=== PATIENT | female | born 1980 | race American Indian/Alaskan Native ===

== ENCOUNTER 2019-12-11 08:18 | Outpatient (CLI) | payer BC ==
--- NOTE | 2019-12-11 10:00 | Cat Scan Report ---
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 TECHNIQUE: Axial CT images were obtained through the chest without contrast. Sagittal and coronal reformatted im ages. All CT scans at this location are performed using CT dose reduction for ALARA by means of autom ated exposure control. COMPARISON: Chest x-ray dated 04/24/2019 FINDINGS: HEART: No significant abnormality. THORACIC AORTA: No significant abnormality. MEDIASTINUM and JAKUB: No significant abnormality. No mediastinal adenopathy. LUNGS: A 1.9 x 1.2 cm subpleural mass is identified in the right posterior costophrenic angle. This l esion is well-circumscribed with no calcifications are intact or internal cystic change. The remainde r the lungs are clear. No underlying parenchymal lung disease is appreciated. PLEURA: No significant pleural effusion. No pneumothorax. SKELETAL SYSTEM: No significant abnormality. UPPER ABDOMEN: No significant abnormality. ADDITIONAL FINDINGS: None. IMPRESSION: 1.9 x 1.2 cm subpleural masslike lesion in the right posterior costophrenic angle. Overall, this has a benign appearance but the etiology of this lesion is unclear. Close interval follow-up is recommen ded to ensure stability. This lesion is not accessible for CT-guided biopsy due to its location. No thoracic adenopathy is detected. Signer Name: Dakotah Good Jr, MD Signed: 12/11/2019 9:55 AM Workstation Name: [id number]
== END 2019-12-11 08:19 | disposition home or self-care (01) ==
LOC: CT 08:18
PROVIDERS: ATTEND Otolaryngology
DX: I88.1 Chronic lymphadenitis, except mesenteric (principal)
CPT/HCPCS: 71250

== ENCOUNTER 2020-08-26 10:35 | Emergency (ER) | payer OTHER, BC ==
[2020-08-26] MEDS ORDERED: IBUPROFEN 600 MG TAB PO ONE (11:15)
--- NOTE | 2020-08-26 11:44 | XRay Report ---
RIGHT LITTLE FINGER 3 VIEWS INDICATION / CLINICAL INFORMATION: Right little finger pain after finger was closed in door earlier today. COMPARISON: None available. FINDINGS: BONES and JOINT(S): No acute fracture or subluxation. No significant arthritis. SOFT TISSUES: Mild generalized edema is seen along the little finger without an additional significan t abnormalities. ADDITIONAL FINDINGS: None. IMPRESSION: Mild right little finger edema without an acute fracture. Signer Name: Mane Barros MD Signed: 08/26/2020 11:40 AM Workstation Name: [email or web address]
--- NOTE | 2020-08-26 11:49 | Emergency Department Report ---
Upper Extremity - [facility] Chief Complaint: Extremity Injury, Upper Stated Complaint: RT PINKIE FINGER Time Seen by Provider: 08/26/20 11:10 Upper Extremity: Right Little Finger Occurred When: Today Mechanism: Other (caught in door) Severity: moderate Symptoms: Yes Pain with Movement, Yes Limited Range of Movement, Yes Swelling, Yes Bruising/Ecchymosis, No Deformity, No Numbness, No Weakness, No Laceration or Abrasion ED Review of Systems ROS: Stated complaint: RT PINKIE FINGER Other details as noted in HPI Comment: All other systems reviewed and negative Musculoskeletal: as per HPI ED Past Medical Hx - Past Medical History Hx Seizures: Yes - Surgical History Additional Surgical History: C section. Breast reduction - Social History Smoking Status: Never Smoker Substance Use Type: None - Medications Home Medications: Home Medications Medication Instructions Recorded Confirmed Last Taken Type Cyclobenzaprine [Flexeril] 10 mg PO TID PRN 5 Days #15 tablet 04/10/20 Unknown Rx Ibuprofen [Motrin 600 MG tab] 600 mg PO Q8H PRN 10 Days #30 08/26/20 Unknown Rx tablet Upper Extremity Exam - Exam General: Vital signs noted. No distress. Alert and acting appropriately. Shoulder Exam: Yes Normal Range of Motion in Shoulder, No Shoulder Tenderness, No Clavicle Tenderness, No Shoulder Deformity Arm Exam: No Arm/Humerus Tenderness, No Arm Deformity Elbow: Yes Normal Range of Motion in Elbow, No Elbow Tenderness Forearm: No Forearm Tenderness, No Forearm Deformity Wrist: Yes Normal ROM in Wrist, No Wrist Tenderness Hand: No Digit(s) Deformity (R little digit with mild swelling at DIP, mild ecchymosis ) ED Course Vital Signs 08/26/20 11:29 Respiratory 18 Rate ED Medical Decision Making - Medical Decision Making caught 5th digit in door, mild edema and bruising on exam cms intact xray = no fx splint placed, fu pcp - Differential Diagnosis fx, contusion, sprain Critical care attestation.: If time is entered above; I have spent that time in minutes in the direct care of this critically ill patient, excluding procedure time. ED Disposition Clinical Impression: Contusion of right little finger Qualifiers: Encounter type: initial encounter Damage to nail status: without damage Qualified Code(s): S60.051A - Contusion of right little finger without damage to nail, initial encounter Disposition: - TO HOME OR SELFCARE Is pt being admited?: No Condition: Good Instructions: Contusion in Adults (ED) Prescriptions: Ibuprofen [Motrin 600 MG tab] 600 mg PO Q8H PRN 10 Days #30 tablet PRN Reason: Pain Referrals: PRIMARY CARE, [Primary Care Provider] - 3-5 Days Time of Disposition: 12:18
[2020-08-26 13:25] VITALS: BP 137/85
== END 2020-08-26 12:24 | disposition home or self-care (01) ==
LOC: ED 10:35
DX: S60.051A Contusion of right little finger without damage to nail, initial encounter (principal); R56.9 Unspecified convulsions; Z98.890 Other specified postprocedural states; Z79.1 Long term (current) use of non-steroidal anti-inflammatories (NSAID); Z79.899 Other long term (current) drug therapy; X58.XXXA Exposure to other specified factors, initial encounter; Y93.89 Activity, other specified; Y92.89 Other specified places as the place of occurrence of the external cause; Y99.8 Other external cause status

== ENCOUNTER 2021-01-03 11:28 | Outpatient (CLI) | payer BC ==
[2021-01-03 12:01] LABS: Basophils # (Auto) 0.1 K/mm3 (0.0-0.1); Basophils % (Auto) 0.6 % (0.0-1.8); Eosinophils # (Auto) 0.1 K/mm3 (0.0-0.4); Eosinophils % (Auto) 0.7 % (0.0-4.3); Hemoglobin 12.4 gm/dl (10.1-14.3); Lymphocytes # (Auto) 2.7 K/mm3 (1.2-5.4); Mean Corpuscular HGB Conc 33 % (30-34); Mean Corpuscular Volume 87 fl (79-97); Monocytes # (Auto) 0.4 K/mm3 (0.0-0.8); Monocytes % (Auto) 5.1 % (0.0-7.3); Platelet Count 306 K/mm3 (140-440); Red Blood Count 4.36 M/mm3 (3.65-5.03); Red Cell Distribution Width 13.3 % (13.2-15.2)
[2021-01-03 12:26] LABS: Alanine Aminotransferase 8 units/L (7-56); Albumin 4.3 g/dL (3.9-5); Blood Urea Nitrogen 7 mg/dL (7-17); Calcium 8.8 mg/dL (8.4-10.2); HDL Cholesterol 82 mg/dL (40-59); Hemolysis Index 1; LDL Cholesterol,Direct 100 mg/dL (50-130)
[2021-01-03 12:31] LABS: BUN/Creatinine Ratio 12
== END 2021-01-03 11:29 | disposition home or self-care (01) ==
LOC: LAB 11:28
PROVIDERS: ATTEND Internal Medicine
DX: Z00.00 Encounter for general adult medical examination without abnormal findings (principal); Z13.29 Encounter for screening for other suspected endocrine disorder; Z13.21 Encounter for screening for nutritional disorder; Z13.1 Encounter for screening for diabetes mellitus; Z13.220 Encounter for screening for lipoid disorders
CPT/HCPCS: 36415; 80053; 80061; 82607; 82652; 83036; 84443; 85025

== ENCOUNTER 2021-02-13 11:37 | Outpatient (CLI) | payer BC | END 2021-02-13 11:38 | disposition home or self-care (01) | LOC: LAB 11:37 | PROVIDERS: ATTEND Internal Medicine | DX: Z20.1 Contact with and (suspected) exposure to tuberculosis (principal) | CPT/HCPCS: 36415; 82164 ==

== ENCOUNTER 2021-05-02 09:46 | Outpatient (CLI) | payer BC ==
[2021-05-06 11:25] LABS: Vitamin D, 25-OH, D2 <4 ng/mL
== END 2021-05-02 09:47 | disposition home or self-care (01) ==
LOC: LAB 09:46
PROVIDERS: ATTEND Internal Medicine
DX: Z13.21 Encounter for screening for nutritional disorder (principal); R73.03 Prediabetes
CPT/HCPCS: 36415; 82306; 83036

== ENCOUNTER 2021-05-10 12:41 | Outpatient (CLI) | payer BC ==
[2021-05-10 15:51] LABS: Hepatitis C Virus Antibody Non-Reactive (NonReactive)
[2021-05-15 08:31] LABS: HIV-1 Antibody Differentiation SEE SCANNED RESULT; HIV-2 Antibody Differentiation SEE SCANNED RESULT
== END 2021-05-10 12:42 | disposition home or self-care (01) ==
LOC: LAB 12:41
PROVIDERS: ATTEND Nurse Practitioner Women's Health
DX: Z11.3 Encounter for screening for infections with a predominantly sexual mode of transmission (principal)
CPT/HCPCS: 36415; 86592; 86689; 86706; 86803

== ENCOUNTER 2021-05-18 13:26 | Outpatient (CLI) | payer BC ==
[2021-05-18 15:14] LABS: Blood Urea Nitrogen 8 mg/dL (7-17); Calcium 9.2 mg/dL (8.4-10.2); Hemolysis Index 0
[2021-05-18 15:24] LABS: BUN/Creatinine Ratio 11
== END 2021-05-18 13:27 | disposition home or self-care (01) ==
LOC: LAB 13:26
PROVIDERS: ATTEND Internal Medicine
DX: E86.0 Dehydration (principal)
CPT/HCPCS: 36415; 80048

== ENCOUNTER 2021-05-25 09:46 | Outpatient (CLI) | payer BC ==
--- NOTE | 2021-05-25 11:12 | Cat Scan Report ---
CT NECK WITH CONTRAST HISTORY: Localized swelling, mass and lump COMPARISON: None. TECHNIQUE: Routine CT of the neck is performed following intravenous contrast. Sagittal and coronal r eformatted images. All CT scans at this location are performed using CT dose reduction for PETRA uribe of automated exposure control. CONTRAST: 100 ml of Omnipaque 350 FINDINGS: Skull Base: No significant abnormality. Parotid, Carotid, Retropharyngeal, Prevertebral, Pharyngeal Mucosal, and Underground [employer] Operator Spaces: No abnorm al mass, enhancing lesion or other significant abnormality. Airway: Patent and without significant abnormality. Lymphatics: No lymphadenopathy. Scattered subcentimeter benign-appearing lymph nodes are noted bilate rally. Vasculature: No significant abnormality. Osseous Structures: No significant abnormality Additional findings: None. IMPRESSION: 1. No significant abnormality. No suspicious mass or lymphadenopathy is identified in the neck. Signer Name: Dakotah Good Jr, MD Signed: 05/25/2021 11:07 AM Workstation Name: [id number]
== END 2021-05-25 09:47 | disposition home or self-care (01) ==
LOC: CT 09:46
PROVIDERS: ATTEND Internal Medicine
DX: R22.1 Localized swelling, mass and lump, neck (principal)
CPT/HCPCS: 70491; Q9967

== ENCOUNTER 2022-03-07 11:32 | Outpatient (CLI) | payer BC ==
[2022-03-07 12:13] LABS: Basophils % (Auto) 0.8 % (0.0-1.8); Eosinophils # (Auto) 0.1 K/mm3 (0.0-0.4); Eosinophils % (Auto) 1.7 % (0.0-4.3); Hematocrit 40.8 % (30.3-42.9); Hemoglobin 13.6 gm/dl (10.1-14.3); Lymphocytes # (Auto) 2.2 K/mm3 (1.2-5.4); Lymphocytes % (Auto) 46.9 % (13.4-35.0); Mean Corpuscular HGB Conc 33 % (30-34); Mean Corpuscular Volume 89 fl (79-97); Monocytes # (Auto) 0.3 K/mm3 (0.0-0.8); Monocytes % (Auto) 6.7 % (0.0-7.3); Platelet Count 287 K/mm3 (140-440); Red Blood Count 4.59 M/mm3 (3.65-5.03); Red Cell Distribution Width 12.7 % (13.2-15.2)
[2022-03-07 12:36] LABS: Alanine Aminotransferase 13 units/L (7-56); Albumin 4.4 g/dL (3.9-5); Blood Urea Nitrogen 8 mg/dL (7-17); Calcium 9.2 mg/dL (8.4-10.2); HDL Cholesterol 85 mg/dL (40-59); Hemolysis Index 4; LDL Cholesterol,Direct 132 mg/dL (50-130)
[2022-03-07 12:38] LABS: BUN/Creatinine Ratio 13
== END 2022-03-07 11:33 | disposition home or self-care (01) ==
LOC: LAB 11:32
PROVIDERS: ATTEND Internal Medicine
DX: Z00.00 Encounter for general adult medical examination without abnormal findings (principal); R73.03 Prediabetes; R53.83 Other fatigue; E55.9 Vitamin D deficiency, unspecified
CPT/HCPCS: 36415; 80053; 80061; 82306; 83036; 84443; 85025